=== PATIENT | female | born 1945 | race Caucasian/White ===

== ENCOUNTER 2020-08-27 09:20 | Inpatient (IN) ==
[2020-08-27 09:57] LABS: Basophils % 0.6 %; Eosinophils # 0.3 K/mcL (0.0-0.6); Eosinophils % 4.3 %; Hematocrit 40.6 % (35.3-44.9); Immature Granulocytes % 0.3 % (0-4); Lymphocytes # 1.5 K/mcL (0.6-4.6); Lymphocytes % 22.3 %; Mean Corpuscular Hemoglobin 33.2 pg (28.0-33.3); Mean Corpuscular Volume 103.6 fL (83.0-100.0); Mean Platelet Volume 9.7 fL (9.4-12.4); Monocytes # 0.7 K/mcL (0.0-1.3); Monocytes % 9.4 %; Neutrophils # 4.4 K/mcL (1.6-8.9); Platelet Count 289 K/mcL (140-400); Red Blood Count 3.92 M/mcL (3.82-4.97); Red Cell Distribution Width 14.5 % (11.5-14.5); Segmented Neutrophils % 63.1 %; White Blood Count 6.9 K/mcL (4.3-11.1)
[2020-08-27 10:08] LABS: INR 1.1; Prothrombin Time 12.4 Seconds (9.4-12.1)
[2020-08-27] MEDS ORDERED: 0.9 % Sodium Chloride 500 ML ONE (10:55)
[2020-08-27] MEDS: *HR* HYDROcodone/Acet 7.5/325 mg TABLET PO PRN ×2 (15:54→23:15)
[2020-08-27] MEDS ORDERED: Ipratropium/Albuterol Neb 3 ML IH PRN (15:57)
[2020-08-27] MEDS ORDERED: Ondansetron ODT 4 MG TAB.RAPDIS SL PRN (15:58)
[2020-08-27] MEDS ORDERED: Naloxone 0.4 MG/ML INJ IVP PRN (15:58)
[2020-08-27 17:02] LABS: Alanine Aminotransferase 7 Units/L (7-52); Albumin 3.8 g/dL (3.5-5.7); Albumin/Globulin Ratio 1.4 (1.1-2.2); Alkaline Phosphatase 46 Units/L (34-104); Aspartate Amino Transferase 13 Units/L (13-39); BUN/Creatinine Ratio 14 (6-26); Bilirubin,Total 0.4 mg/dL (0.3-1.0); Blood Urea Nitrogen 12 mg/dL (8-23); Calcium 9.6 mg/dL (8.6-10.3); Carbon Dioxide 30 mEq/L (23-29); Chloride 104 mEq/L (98-107); Globulin 2.8 g/dL (2.4-3.5); Glucose 105 mg/dL (70-105); Osmolality,Calculated 286 (280-300); Potassium 4.3 mEq/L (3.5-5.1); Sodium 138 mEq/L (136-145); Total Protein 6.6 g/dL (6.4-8.9); eGFR For African Americans > 60 (> 60); eGFR For Non-African Americans > 60 (> 60)
[2020-08-27] MEDS: Budesonide/Formoterol 160/4.5 1 PUFF INH IH SCH (20:06)
[2020-08-27] MEDS: *HR* HYDROmorphone (PF) 1 MG/ML SYRINGE IVP PRN (20:14)
[2020-08-27] MEDS: *HR* Heparin 5,000 UNIT/ML VIAL SQ SCH (22:11)
[2020-08-28] MEDS: *HR* HYDROmorphone (PF) 1 MG/ML SYRINGE IVP PRN ×3 (01:31→09:28)
[2020-08-28 04:33] LABS: Basophils % 0.7 %; Eosinophils # 0.3 K/mcL (0.0-0.6); Eosinophils % 4.2 %; Hematocrit 37.5 % (35.3-44.9); Hemoglobin 11.8 g/dL (11.5-15.4); Immature Granulocytes % 0.3 % (0-4); Lymphocytes # 2.1 K/mcL (0.6-4.6); Lymphocytes % 35.7 %; Mean Corpuscular HGB Conc 31.5 g/dL (31.6-35.5); Mean Corpuscular Hemoglobin 32.3 pg (28.0-33.3); Mean Corpuscular Volume 102.7 fL (83.0-100.0); Mean Platelet Volume 10.1 fL (9.4-12.4); Monocytes # 0.6 K/mcL (0.0-1.3); Monocytes % 10.5 %; Neutrophils # 2.9 K/mcL (1.6-8.9); Platelet Count 259 K/mcL (140-400); Red Blood Count 3.65 M/mcL (3.82-4.97); Red Cell Distribution Width 14.3 % (11.5-14.5); Segmented Neutrophils % 48.6 %; White Blood Count 5.9 K/mcL (4.3-11.1)
[2020-08-28 04:52] LABS: BUN/Creatinine Ratio 15 (6-26); Blood Urea Nitrogen 13 mg/dL (8-23); Calcium 8.9 mg/dL (8.6-10.3); Carbon Dioxide 29 mEq/L (23-29); Chloride 104 mEq/L (98-107); Glucose 81 mg/dL (70-105); Osmolality,Calculated 285 (280-300); Sodium 138 mEq/L (136-145); eGFR For African Americans > 60 (> 60); eGFR For Non-African Americans > 60 (> 60)
[2020-08-28] MEDS: *HR* Heparin 5,000 UNIT/ML VIAL SQ SCH ×3 (05:33→22:03)
[2020-08-28] MEDS: Aspirin 81 MG TAB.CHEW PO SCH (09:28)
[2020-08-28] MEDS: Budesonide/Formoterol 160/4.5 1 PUFF INH IH SCH ×2 (11:23→19:53)
[2020-08-28] MEDS: *HR* HYDROcodone/Acet 7.5/325 mg TABLET PO PRN ×2 (12:04→22:05)
[2020-08-28] MEDS ORDERED: *HR* LORazepam 1 MG TABLET PO PRN (12:33)
[2020-08-28] MEDS ORDERED: NON-FORMULARY MEDICATION 1 EACH EACH (Roflumilast [Daliresp] 500 MCG) PO SCH (12:45)
[2020-08-28] MEDS: Ranolazine 500 MG TAB.ER.12H PO SCH ×2 (15:12→20:09)
[2020-08-28] MEDS ORDERED: *HR* OxyCODONE Immed Rel 5 MG TABLET PO ONE (15:26)
[2020-08-28] MEDS ORDERED: Famotidine 20 MG TABLET PO SCH ×2 (21:00)
[2020-08-29 02:57] LABS: BUN/Creatinine Ratio 14 (6-26); Basophils % 0.5 %; Blood Urea Nitrogen 12 mg/dL (8-23); Calcium 8.9 mg/dL (8.6-10.3); Carbon Dioxide 27 mEq/L (23-29); Chloride 103 mEq/L (98-107); Eosinophils # 0.3 K/mcL (0.0-0.6); Eosinophils % 4.1 %; Glucose 100 mg/dL (70-105); Hematocrit 34.9 % (35.3-44.9); Hemoglobin 11.2 g/dL (11.5-15.4); Immature Granulocytes % 0.2 % (0-4); Lymphocytes % 32.2 %; Mean Corpuscular HGB Conc 32.1 g/dL (31.6-35.5); Mean Corpuscular Hemoglobin 32.7 pg (28.0-33.3); Mean Platelet Volume 10.3 fL (9.4-12.4); Monocytes # 0.7 K/mcL (0.0-1.3); Neutrophils # 3.1 K/mcL (1.6-8.9); Osmolality,Calculated 286 (280-300); Platelet Count 237 K/mcL (140-400); Red Blood Count 3.42 M/mcL (3.82-4.97); Red Cell Distribution Width 14.3 % (11.5-14.5); Sodium 138 mEq/L (136-145); White Blood Count 6.1 K/mcL (4.3-11.1); eGFR For African Americans > 60 (> 60); eGFR For Non-African Americans > 60 (> 60)
[2020-08-29 03:48] VITALS: BP 122/76
[2020-08-29] MEDS: *HR* Heparin 5,000 UNIT/ML VIAL SQ SCH ×2 (05:15→14:54)
[2020-08-29] MEDS: Budesonide/Formoterol 160/4.5 1 PUFF INH IH SCH (07:25)
[2020-08-29] MEDS: Aspirin 81 MG TAB.CHEW PO SCH (08:38)
[2020-08-29] MEDS: Ranolazine 500 MG TAB.ER.12H PO SCH (08:39)
[2020-08-29] MEDS: *HR* HYDROcodone/Acet 7.5/325 mg TABLET PO PRN ×2 (08:48→14:55)
== END 2020-08-29 18:05 | disposition home or self-care (01) | DRG 199 ==
LOC: 2NENU 09:20 → RAD 09:20 → SUATTDRO 16:45
PROVIDERS: ADMIT Internal Medicine; ATTEND Internal Medicine

== ENCOUNTER 2020-09-27 13:36 | Inpatient (IN) ==
[2020-09-27] MEDS ORDERED: Clindamycin 900 MG/50 ML 900 MG/50 ML IV.SOLN IVPB ONE (14:32)
[2020-09-27] MEDS ORDERED: Ringers Solution, Lactated 1,000 ML IVC SCH ×2 (14:45→15:00)
[2020-09-27] MEDS ORDERED: Lidocaine HCL 4 ML Topical Solution (Laryng-O-Jet Kit Sterile Pak) TP ONE (14:50)
[2020-09-27] MEDS ORDERED: Lidocaine -MPF 2% 2 ML VIAL ONE (14:50)
[2020-09-27] MEDS ORDERED: Ondansetron 4 MG/2 ML VIAL ONE (14:50)
[2020-09-27] MEDS ORDERED: Dexamethasone 4 MG/ML VIAL ONE (14:50)
[2020-09-27] MEDS ORDERED: *HR* Rocuronium Bromide 50 MG/5 ML VIAL ONE (14:50)
[2020-09-27] MEDS ORDERED: *HR* Propofol 200 MG/20 ML VIAL IVP ONE (14:51)
[2020-09-27] MEDS ORDERED: *HR* FentaNYL (PF) 100 MCG/2 ML VIAL ONE (14:51)
[2020-09-27] MEDS ORDERED: *HR* OxyCODONE Immed Rel 5 MG TABLET PO PRN (14:54)
[2020-09-27] MEDS ORDERED: Ondansetron 4 MG/2 ML VIAL IVP PRN ×2 (14:54→17:39)
[2020-09-27] MEDS ORDERED: Lidocaine -MPF 4% 5 ML AMPUL ONE (14:54)
[2020-09-27] MEDS: *HR* FentaNYL (PF) 100 MCG/2 ML VIAL IVP PRN ×4 (17:02→17:17)
[2020-09-27] MEDS ORDERED: *HR* LORazepam 1 MG TABLET PO PRN (17:39)
[2020-09-27] MEDS ORDERED: Naloxone 0.4 MG/ML INJ IVP PRN (17:39)
[2020-09-27] MEDS: *HR* HYDROcodone/Acet 7.5/325 mg TABLET PO PRN ×2 (18:26→23:19)
[2020-09-27] MEDS: Ketorolac 15 MG/ML VIAL IVP SCH ×2 (18:48→23:19)
[2020-09-27] MEDS: Ipratropium/Albuterol Neb 3 ML IH SCH (20:28)
[2020-09-27] MEDS: Budesonide/Formoterol 160/4.5 1 PUFF INH IH SCH (20:28)
[2020-09-27] MEDS ORDERED: Famotidine 20 MG TABLET PO SCH (21:00)
[2020-09-27] MEDS: Sennosides/Docusate Sodium TABLET PO SCH (21:37)
[2020-09-27] MEDS: *HR* Heparin 5,000 UNIT/ML VIAL SQ SCH (21:38)
[2020-09-27] MEDS: Gabapentin 300 MG CAPSULE PO SCH (21:38)
[2020-09-27] MEDS: 0.9 % Sodium Chloride 1,000 ML IVC SCH (21:44)
[2020-09-28] MEDS: Ipratropium/Albuterol Neb 3 ML IH SCH ×5 (00:18→15:48)
[2020-09-28 05:52] LABS: Hematocrit 33.6 % (35.3-44.9); Hemoglobin 10.8 g/dL (11.5-15.4); Mean Corpuscular HGB Conc 32.1 g/dL (31.6-35.5); Mean Corpuscular Hemoglobin 32.8 pg (28.0-33.3); Mean Corpuscular Volume 102.1 fL (83.0-100.0); Mean Platelet Volume 10.2 fL (9.4-12.4); Platelet Count 205 K/mcL (140-400); Red Blood Count 3.29 M/mcL (3.82-4.97); Red Cell Distribution Width 13.7 % (11.5-14.5); White Blood Count 8.7 K/mcL (4.3-11.1)
[2020-09-28 06:13] LABS: % Iron Saturation 11 % (15-50); BUN/Creatinine Ratio 19 (6-26); Blood Urea Nitrogen 20 mg/dL (8-23); Calcium 8.3 mg/dL (8.6-10.3); Carbon Dioxide 26 mEq/L (23-29); Chloride 107 mEq/L (98-107); Glucose 123 mg/dL (70-105); Iron 30 mcg/dL (50-170); Magnesium 1.8 mg/dL (1.6-2.6); Osmolality,Calculated 290 (280-300); Potassium 4.1 mEq/L (3.5-5.1); Sodium 138 mEq/L (136-145); Transferrin 202 mg/dL (203-362); eGFR For African Americans > 60 (> 60); eGFR For Non-African Americans 51 (> 60)
[2020-09-28] MEDS: *HR* Heparin 5,000 UNIT/ML VIAL SQ SCH ×2 (06:26→15:54)
[2020-09-28] MEDS: Ketorolac 15 MG/ML VIAL IVP SCH (06:26)
[2020-09-28] MEDS: Budesonide/Formoterol 160/4.5 1 PUFF INH IH SCH (07:41)
[2020-09-28] MEDS: Gabapentin 300 MG CAPSULE PO SCH ×2 (08:49→14:11)
[2020-09-28] MEDS: *HR* HYDROcodone/Acet 7.5/325 mg TABLET PO PRN ×2 (08:50→15:53)
[2020-09-28] MEDS: Sennosides/Docusate Sodium TABLET PO SCH (08:50)
[2020-09-28] MEDS ORDERED: Famotidine 20 MG TABLET PO SCH (09:00)
[2020-09-28] MEDS: 0.9 % Sodium Chloride 1,000 ML IVC SCH (10:20)
[2020-09-28 11:20] VITALS: BP 95/55
== END 2020-09-28 15:45 | disposition home or self-care (01) | DRG 163 ==
LOC: SAMDAY 13:36 → 2NNU 17:38
PROVIDERS: ADMIT Thoracic Surgery (Cardiothoracic Vascular Surgery); ATTEND Thoracic Surgery (Cardiothoracic Vascular Surgery)

== ENCOUNTER 2021-11-10 17:29 | Observation (INO) ==
[2021-11-10] MEDS ORDERED: Naloxone 0.4 MG/ML INJ IVP PRN (19:19)
[2021-11-10] MEDS ORDERED: Melatonin 3 MG TABLET PO PRN (19:19)
[2021-11-10] MEDS ORDERED: Acetaminophen 325 MG TABLET PO PRN (19:19)
[2021-11-10] MEDS ORDERED: Perflutren Lipid Microsphere 1.3 ML in 0.9 % Sodium Chloride 8.7 ML IVP PRN (19:21)
[2021-11-10] MEDS ORDERED: Nitroglycerin 0.4 MG TAB.SUBL SL PRN (19:22)
[2021-11-10] MEDS ORDERED: Ipratropium/Albuterol Neb 3 ML IH PRN (20:30)
[2021-11-10] MEDS: *HR* OxyCODONE Immed Rel 5 MG TABLET PO PRN (21:18)
[2021-11-10] MEDS: Famotidine 20 MG TABLET PO SCH (21:54)
[2021-11-10] MEDS: *HR* LORazepam 1 MG TABLET PO SCH (21:54)
[2021-11-10 22:09] LABS: Adenovirus Not Detected (Not Detect); Bordetella Pertussis Not Detected (Not Detect); Chlamydophila pneumoniae Not Detected (Not Detect); Coronavirus 229E Not Detected (Not Detect); Coronavirus HKU1 Not Detected (Not Detect); Coronavirus NL63 Not Detected (Not Detect); Coronavirus OC43 Not Detected (Not Detect); Human Metapneumovirus Not Detected (Not Detect); Human Rhinovirus/Enterovirus Not Detected (Not Detect); Influenza A Subtype 2009 H1 Not Detected (Not Detect); Influenza B Not Detected (Not Detect); Mycoplasma pneumoniae Not Detected (Not Detect); Parainfluenza Virus 1 Not Detected (Not Detect); Parainfluenza Virus 2 Not Detected (Not Detect); Parainfluenza Virus 3 Not Detected (Not Detect); Parainfluenza Virus 4 Not Detected (Not Detect); Respiratory Syncytial Virus Not Detected (Not Detect); SARS-CoV-2 Not Detected (Not Detect)
[2021-11-11 02:01] LABS: Hematocrit 31.1 % (35.3-44.9); Hemoglobin 9.9 g/dL (11.5-15.4); Mean Corpuscular HGB Conc 31.8 g/dL (31.6-35.5); Mean Corpuscular Hemoglobin 31.6 pg (28.0-33.3); Mean Corpuscular Volume 99.4 fL (83.0-100.0); Mean Platelet Volume 9.8 fL (9.4-12.4); Platelet Count 222 K/mcL (140-400); Red Blood Count 3.13 M/mcL (3.82-4.97); Red Cell Distribution Width 15.6 % (11.5-14.5)
[2021-11-11 02:22] LABS: BUN/Creatinine Ratio 14 (6-26); Blood Urea Nitrogen 13 mg/dL (8-23); Calcium 8.6 mg/dL (8.6-10.3); Carbon Dioxide 25 mEq/L (23-29); Chloride 107 mEq/L (98-107); Cholesterol 73 mg/dL (< 200); Glucose 123 mg/dL (70-105); HDL Cholesterol 37 mg/dL (40-59); LDL Cholesterol,Calculated 24 mg/dL (< 100); Osmolality,Calculated 287 (280-300); Phosphorous 3.5 mg/dL (2.7-4.5); Potassium 3.9 mEq/L (3.5-5.1); Sodium 138 mEq/L (136-145); Triglycerides 59 mg/dL (< 150); eGFR For African Americans > 60 (> 60); eGFR For Non-African Americans > 60 (> 60)
[2021-11-11 02:35] LABS: Thyroid Stimulating Hormone 0.343 mcIU/mL (0.340-5.600)
[2021-11-11] MEDS ORDERED: Regadenoson 0.4 MG/5 ML SYRINGE IVP ONE (05:44)
[2021-11-11 07:01] LABS: Estimated Average Glucose 117 mg/dl; Hemoglobin A1C 5.7 %
[2021-11-11] MEDS ORDERED: *HR* LORazepam 1 MG TABLET PO SCH (09:00)
[2021-11-11] MEDS: Aspirin 81 MG TAB.CHEW PO SCH (09:24)
[2021-11-11] MEDS: *HR* LORazepam 1 MG TABLET PO SCH ×2 (09:24→21:11)
[2021-11-11] MEDS: *HR* OxyCODONE Immed Rel 5 MG TABLET PO PRN (09:36)
[2021-11-11 09:48] LABS: Estimated Average Glucose 114 mg/dl; Hemoglobin A1C 5.6 %
[2021-11-11 09:49] LABS: % Iron Saturation 4 % (15-50); Iron 12 mcg/dL (50-170); Transferrin 240 mg/dL (203-362)
[2021-11-11 10:11] LABS: Ferritin 71 ng/mL (10-120)
[2021-11-11 10:16] LABS: Folate 8.1 ng/mL (3.0-16.0)
[2021-11-11] MEDS: Budesonide/Formoterol 160/4.5 1 PUFF INH IH SCH ×2 (10:31→20:51)
[2021-11-11] MEDS ORDERED: Iron Sucrose Complex 400 MG in 0.9 % Sodium Chloride 250 ML IVPB ONE (11:45)
[2021-11-11] MEDS: Pantoprazole 40 MG VIAL IVP SCH (17:36)
[2021-11-11] MEDS: Famotidine 20 MG TABLET PO SCH (21:11)
[2021-11-12 07:40] LABS: Hematocrit 31.9 % (35.3-44.9); Hemoglobin 10.1 g/dL (11.5-15.4); Mean Corpuscular HGB Conc 31.7 g/dL (31.6-35.5); Mean Corpuscular Hemoglobin 31.5 pg (28.0-33.3); Mean Corpuscular Volume 99.4 fL (83.0-100.0); Mean Platelet Volume 10.9 fL (9.4-12.4); Platelet Count 226 K/mcL (140-400); Red Blood Count 3.21 M/mcL (3.82-4.97); Red Cell Distribution Width 15.3 % (11.5-14.5); White Blood Count 8.4 K/mcL (4.3-11.1)
[2021-11-12] MEDS: Budesonide/Formoterol 160/4.5 1 PUFF INH IH SCH ×2 (07:58→19:58)
[2021-11-12] MEDS: *HR* LORazepam 1 MG TABLET PO SCH ×2 (08:52→21:52)
[2021-11-12] MEDS: Fluconazole 100 MG TABLET PO SCH (08:52)
[2021-11-12] MEDS: Pantoprazole 40 MG VIAL IVP SCH (08:53)
[2021-11-12] MEDS: Aspirin 81 MG TAB.CHEW PO SCH (08:53)
[2021-11-12] MEDS: Roflumilast [Daliresp] 500 MCG Tablet PO SCH (08:54)
[2021-11-12 09:04] LABS: Alanine Aminotransferase 5 Units/L (7-52); Albumin 3.2 g/dL (3.5-5.7); Alkaline Phosphatase 55 Units/L (34-104); Aspartate Amino Transferase 13 Units/L (13-39); BUN/Creatinine Ratio 12 (6-26); Bilirubin,Total 0.3 mg/dL (0.3-1.0); Blood Urea Nitrogen 10 mg/dL (8-23); Calcium 8.8 mg/dL (8.6-10.3); Carbon Dioxide 23 mEq/L (23-29); Chloride 104 mEq/L (98-107); Globulin 3.1 g/dL (2.4-3.5); Glucose 81 mg/dL (70-105); Osmolality,Calculated 278 (280-300); Potassium 4.8 mEq/L (3.5-5.1); Sodium 135 mEq/L (136-145); Total Protein 6.3 g/dL (6.4-8.9); eGFR For African Americans > 60 (> 60); eGFR For Non-African Americans > 60 (> 60)
[2021-11-12] MEDS ORDERED: SODIUM CHLORIDE/NAHCO3/KCL/PEG 4,000 ML SOLN.RECON PO ONE (17:00)
[2021-11-12] MEDS: Ondansetron ODT 4 MG TAB.RAPDIS SL PRN (17:37)
[2021-11-12] MEDS ORDERED: Prochlorperazine 10 MG/2 ML VIAL IVP PRN (19:48)
[2021-11-12] MEDS: Famotidine 20 MG TABLET PO SCH (21:52)
[2021-11-13] MEDS: Ondansetron ODT 4 MG TAB.RAPDIS SL PRN ×2 (04:40→13:34)
[2021-11-13 07:20] LABS: Hematocrit 34.8 % (35.3-44.9); Hemoglobin 10.9 g/dL (11.5-15.4); Mean Corpuscular HGB Conc 31.3 g/dL (31.6-35.5); Mean Corpuscular Hemoglobin 30.7 pg (28.0-33.3); Mean Platelet Volume 9.9 fL (9.4-12.4); Platelet Count 259 K/mcL (140-400); Red Blood Count 3.55 M/mcL (3.82-4.97); Red Cell Distribution Width 15.2 % (11.5-14.5)
[2021-11-13] MEDS: Budesonide/Formoterol 160/4.5 1 PUFF INH IH SCH ×2 (07:30→20:43)
[2021-11-13] MEDS: Aspirin 81 MG TAB.CHEW PO SCH (08:19)
[2021-11-13] MEDS: Fluconazole 100 MG TABLET PO SCH (08:19)
[2021-11-13] MEDS: *HR* LORazepam 1 MG TABLET PO SCH ×2 (08:19→20:07)
[2021-11-13] MEDS: Roflumilast [Daliresp] 500 MCG Tablet PO SCH (08:20)
[2021-11-13] MEDS: Pantoprazole 40 MG VIAL IVP SCH (08:20)
[2021-11-13] MEDS: *HR* HYDROcodone/Acet 5/325 mg TABLET PO PRN ×2 (13:34→20:07)
[2021-11-13] MEDS ORDERED: Lidocaine -MPF 2% 2 ML VIAL ONE (16:26)
[2021-11-13] MEDS ORDERED: EPHEDrine 50 MG/ML VIAL ONE (16:40)
[2021-11-13] MEDS: Famotidine 20 MG TABLET PO SCH (20:07)
[2021-11-14 05:45] LABS: Hematocrit 30.9 % (35.3-44.9); Hemoglobin 9.8 g/dL (11.5-15.4); Mean Corpuscular HGB Conc 31.7 g/dL (31.6-35.5); Mean Corpuscular Volume 97.8 fL (83.0-100.0); Platelet Count 259 K/mcL (140-400); Red Blood Count 3.16 M/mcL (3.82-4.97); Red Cell Distribution Width 15.2 % (11.5-14.5); White Blood Count 6.8 K/mcL (4.3-11.1)
[2021-11-14 05:53] LABS: BUN/Creatinine Ratio 14 (6-26); Blood Urea Nitrogen 11 mg/dL (8-23); Carbon Dioxide 28 mEq/L (23-29); Chloride 104 mEq/L (98-107); Glucose 86 mg/dL (70-105); Magnesium 1.9 mg/dL (1.6-2.6); Osmolality,Calculated 287 (280-300); Potassium 3.9 mEq/L (3.5-5.1); Sodium 139 mEq/L (136-145); eGFR For African Americans > 60 (> 60); eGFR For Non-African Americans > 60 (> 60)
[2021-11-14 06:34] VITALS: BP 107/67; PULSE 65; TEMP 98.1; O2SAT 96
[2021-11-14] MEDS: Pantoprazole 40 MG VIAL IVP SCH (07:28)
[2021-11-14] MEDS: *HR* LORazepam 1 MG TABLET PO SCH (07:29)
[2021-11-14] MEDS: Aspirin 81 MG TAB.CHEW PO SCH (07:29)
[2021-11-14] MEDS: Fluconazole 100 MG TABLET PO SCH (07:29)
[2021-11-14] MEDS: Roflumilast [Daliresp] 500 MCG Tablet PO SCH (07:29)
[2021-11-14] MEDS: Budesonide/Formoterol 160/4.5 1 PUFF INH IH SCH (07:38)
== END 2021-11-14 09:25 | disposition home or self-care (01) ==
LOC: 3BNU → SUATTDRO 19:09
PROVIDERS: ADMIT Internal Medicine; ATTEND Internal Medicine